=== PATIENT | male | born 1935 | race Caucasian/White ===

== ENCOUNTER → 2018-11-10 14:30 | Outpatient (CLI) | payer MEDICARE, SELFPAY | PROVIDERS: Family Provider Family Medicine; PCP Family Medicine; Referring Provider Podiatrist; Visit Provider Podiatrist | DX: L60.0 Ingrowing nail (principal) ==

== ENCOUNTER → 2019-08-18 09:27 | Outpatient (CLI) | payer MEDICARE, SELFPAY ==
--- NOTE | 2019-08-18 09:38 | VDLE_ITS ---
Reason For Study: venous insufficiency RIGHT LEFT CFV is compressible, spontaneous, phasic, CFV is compressible, spontaneous, phasic, competent and demonstrates normal competent, and demonstrates normal augmentation. augmentation. FV is compressible, spontaneous, phasic, FV is compressible, spontaneous, phasic, competent and demonstrates normal competent and demonstrates normal augmentation. augmentation. POP V is compressible, spontaneous, phasic, POP V is compressible, spontaneous, phasic, competent and demonstrates normal competent and demonstrates normal augmentation. augmentation. T/P Trunk is compressible. T/P Trunk is compressible. PTV is compressible. PTV is compressible. RT PerV is compressible. LT PerV is compressible. SFJ is INCOMPETENT and measures .81 x .79 cm. SFJ is INCOMPETENT and measures .99 x 1.1 cm. GSV proximal thigh measures .64 x .59 cm. GSV proximal thigh measures .68 x .69 cm. GSV at knee measures .2 x .24 cm. GSV at knee measures .57 x .65 cm. GSV INCOMPETENT throughout for greater than GSV INCOMPETENT throughout for greater than 0.5 seconds. 0.5 seconds. ASV mid calf is incompetent for greater SSV proximal calf is competent and than .5 seconds. measures .1 x .1 cm. ASV mid calf measures .45 x .49 cm. ASV mid thigh is incompetent for greater than .5 seconds. ASV mid thigh measures .84 x .81 cm. Credit Analyst V 20 cm proximal to the medial malleolus is incompetent for greater than .5 seconds. SSV proximal calf is competent and measures .21 x .23 cm. Procedure Exam performed in department. The exam was diagnostic. Interpretation Summary Deep veins of the lower extremities are bilaterally patent and compressible segmentally. There is no evidence of deep vein thrombosis on either side. Valvular competence appears intact within the proximal deep venous systems bilaterally. The great saphenous veins appear bilaterally patent and compressible segmentally. Sapheno-femoral junctions are bilaterally incompetent . Segmental valvular incompetence is noted within the great saphenous veins bilaterally. Small saphenous veins are patent and competent bilaterally. Incompetent accessory saphenous veins are noted in the right mid-thigh and mid-calf. An incompetent exhibit builder vein is noted in the right calf, located 20 centimeters proximal to the right medial malleolus. Ordering Physician: Ana Maria Wallis Performed By: Jessee Ogden RVT
--- NOTE | 2019-08-18 09:39 | ART_ITS ---
Reason For Study: PVD Procedure A bilateral lower extremity continuous wave Doppler with analog waveform analysis,segmental pressures,and ankle brachial indexes without exercise. Left Segmental Pressures Left brachial= 135mmHg. Left posterior tibial artery = 218mmHg. Left dorsalis pedis artery = 166mmHg. Left digit = 195 mmHg. The left dorsalis pedis waveforms are triphasic. The left posterior tibial artery waveforms are triphasic. Right Segmental Pressures Right brachial= 135mmHg. Right dorsalis pedis artery = 248mmHg. Right digit = 153 mmHg. The right dorsalis pedis waveforms are triphasic. The right posterior tibial artery waveforms are triphasic. 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 Indices The right ankle brachial index by the dorsalis pedis is 1.84. The right digital-brachial index is 1.13. 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 The left ankle brachial index by the dorsalis pedis is 1.23. The left ankle brachial index by the posterior tibial artery is 1.61. The left digital-brachial index is 1.44. Interpretation Summary Triphasic Doppler waveforms are noted at ankle level bilaterally. Pulse-volume recordings appear satisfactory at all levels bilaterally, including low-thigh, calf, ankle, and digital levels. Resting ankle-brachial indices are supra-normal bilaterally. Digital-brachial indices are normal bilaterally. There is evidence of arterial calcification at ankle level bilaterally. There is no evidence of arterial occlusive disease in the lower extremities bilaterally. Ordering Physician: Ana Maria Wallis Performed By: AMBER MERCADO T
== END ==
PROVIDERS: PCP Family Medicine; Referring Provider Podiatrist; Visit Provider Podiatrist
DX: I73.89 Other specified peripheral vascular diseases (principal); I87.2 Venous insufficiency (chronic) (peripheral); R60.0 Localized edema
CPT/HCPCS: 93923; 93970